=== PATIENT | female | born 2000 | race Two or more races ===

== ENCOUNTER 2025-01-05 16:47 | Emergency (ER) | payer OTHER ==
[~2025-01-05] VITALS: Ht 152.4 cm; Wt 45.4 kg
[2025-01-05] MEDS ORDERED: 0.9 % SODIUM CHLORIDE 500 ML IV ONE (17:45)
[2025-01-05] MEDS ORDERED: ONDANSETRON HCL 2 MG/ML VIAL IV ONE (17:45)
[2025-01-05] MEDS ORDERED: ONDANSETRON HCL 2 MG/ML VIAL ONE (17:52)
[2025-01-05 18:07] LABS: HEMATOCRIT 43.1 % (36.0-45.00); HEMOGLOBIN 14.6 g/dL (12.0-15.00); MEAN CELL VOLUME 88.4 fL (80.00-100.00); MEAN CORPUSCULAR HEMOGLOBIN 29.9 pg (27.00-32.0); MEAN CORPUSCULAR HGB CONC 33.9 g/dl (32.0-36.0); PLATELET COUNT 308 K/uL (150-450); RED BLOOD COUNT 4.88 M/uL (4.00-6.00)
[2025-01-05 18:34] LABS: PH,URINE 5.5 (5.0-8.0); URINE APPEARANCE Clear; URINE BILIRRUBIN Negative (NEGATIVE); URINE BLOOD Negative; URINE COLOR Yellow; URINE GLUCOSE Negative (NEGATIVE); URINE LEUKOCYTE Negative; URINE NITRATE Negative; URINE PROTEIN Negative (NEGATIVE)
[2025-01-05 18:38] LABS: URINE BACTERIA 2433.1 uL (0.0-1933); URINE EPITHELIAL CELLS 81.6 uL (0.0-38.8); URINE WBC 45.1 uL (0.0-23.2)
[2025-01-05 18:51] LABS: URINE CAST 0.14 uL (0.0-1.40); URINE KETONE 40 (NEGATIVE); URINE MUCUS MODERATE; URINE RBC 1.1 uL (0.0-20.8)
[2025-01-05 19:20] LABS: BILIRUBIN TOTAL 0.62 mg/dL (0.3-1.2); CALCIUM 9.3 mg/dL (8.5-10.1); CREATININE SERUM 0.61 mg/dL (0.55-1.02); GFR 119.5; GLOBULINA 3.7 G/DL (2.4-3.5); POTASSIUM 3.3 mEq/L (3.5-5.1); TOTAL PROTEIN 7.7 gm/dL (6.4-8.2)
[2025-01-05] MEDS ORDERED: ONDANSETRON ODT8 MG PO (20:59)
[2025-01-05] MEDS ORDERED: PRENATABS FA T1 EACH PO (20:59)
== END 2025-01-05 21:19 ==
LOC: ER 16:48
PROVIDERS: General Practice
DX: O26.891 Other specified pregnancy related conditions, first trimester (principal); R10.2 Pelvic and perineal pain; O21.9 Vomiting of pregnancy, unspecified; Z3A.01 Less than 8 weeks gestation of pregnancy

== ENCOUNTER 2025-01-10 23:37 | Emergency (ER) | payer OTHER ==
[~2025-01-10] VITALS: Ht 152.4 cm; Wt 45.4 kg
[~2025-01-10 23:37] MED LIST: ONDANSETRON ODT8 MG PO; PRENATABS FA T1 EACH PO
[2025-01-11 00:51] LABS: URINE APPEARANCE Clear; URINE BILIRRUBIN Negative (NEGATIVE); URINE BLOOD Large; URINE COLOR Yellow; URINE GLUCOSE Negative (NEGATIVE); URINE KETONE Trace (NEGATIVE); URINE LEUKOCYTE Negative; URINE NITRATE Negative; URINE PROTEIN Trace (NEGATIVE); URINE UROBILINOGEN 0.2 E.U./dl
[2025-01-11 00:51] LABS: HEMATOCRIT 37.6 % (36.0-45.00); HEMOGLOBIN 12.9 g/dL (12.0-15.00); MEAN CORPUSCULAR HEMOGLOBIN 30.2 pg (27.00-32.0); MEAN CORPUSCULAR HGB CONC 34.3 g/dl (32.0-36.0); PLATELET COUNT 293 K/uL (150-450); RED BLOOD COUNT 4.28 M/uL (4.00-6.00); RED CELL DISTRIBUTION WIDTH 12.7 % (11.5-14.5)
[2025-01-11 00:55] LABS: URINE BACTERIA 2908.1 uL (0.0-1933); URINE EPITHELIAL CELLS 74.8 uL (0.0-38.8); URINE RBC 5.8 uL (0.0-20.8); URINE WBC 16.7 uL (0.0-23.2)
[2025-01-11 01:02] LABS: URINE CAST 1.03 uL (0.0-1.40)
[2025-01-11 01:59] LABS: CALCIUM 9.1 mg/dL (8.5-10.1); CREATININE SERUM 0.62 mg/dL (0.55-1.02); GFR 117.28; POTASSIUM 4.18 mEq/L (3.5-5.1)
== END 2025-01-11 04:22 ==
LOC: ER 23:38
PROVIDERS: General Practice
DX: O20.8 Other hemorrhage in early pregnancy (principal); Z3A.01 Less than 8 weeks gestation of pregnancy

== ENCOUNTER 2025-03-14 16:29 | Emergency (ER) | payer OTHER ==
[~2025-03-14] VITALS: Ht 152.4 cm; Wt 49.4 kg
== END 2025-03-14 19:15 | disposition home or self-care (01) ==
LOC: ER 16:32
DX: O26.892 Other specified pregnancy related conditions, second trimester (principal); R04.2 Hemoptysis; Z3A.16 16 weeks gestation of pregnancy